=== PATIENT | female | born 1955 | race Caucasian/White ===

== ENCOUNTER → 2016-12-29 | Outpatient (CLI) | payer BC ==
[~2016-12-29] MED LIST: HYPERTENSION MED; ZOLM5TAB8
--- NOTE | 2016-12-29 17:46 | Diagnostic Imaging Report ---
INDICATION: Left foot pain. FINDINGS: Three views of the left foot show no fracture, dislocation or other acute abnormalities. IMPRESSION: Negative left foot. Dictated by: Dictated on workstation # [id number]
--- NOTE | 2016-12-29 17:55 | Diagnostic Imaging Report ---
INDICATION: Left ankle injury. FINDINGS: Three views of the left ankle show soft tissue swelling. There is no acute fracture or dislocation. IMPRESSION: Soft tissue swelling. No acute fracture seen. Dictated by: Dictated on workstation # [id number]
== END ==
LOC: RAD 15:22
PROVIDERS: ATTEND Family Medicine
DX: M25.572 Pain in left ankle and joints of left foot (principal); R22.42 Localized swelling, mass and lump, left lower limb
CPT/HCPCS: 73610; 73630

== ENCOUNTER → 2019-06-22 | Outpatient (CLI) | payer BC ==
--- NOTE | 2019-06-22 15:33 | Diagnostic Imaging Report ---
INDICATION: Back pain. COMPARISON: None FINDINGS: Frontal and lateral views of the lumbar spine were obtained. Static alignment shows mild levoscoliotic deformity epicentered at L3. AP static alignment is maintained. There is no fracture or destructive process. Multilevel degenerative disease is noted in the lumbar spine. Limited views of the abdomen demonstrate nonobstructive bowel gas pattern. There is moderate calcified aortic atherosclerosis. IMPRESSION: 1. No acute fracture or dislocation of the lumbar spine. Dictated by: Dictated on workstation # [id number]
--- NOTE | 2019-06-22 15:37 | Diagnostic Imaging Report ---
INDICATION: Mid to lower back pain. COMPARISON: None. EXAMINATION: Frontal and lateral radiographic views of the chest were obtained. FINDINGS: Upper thoracic spine is obscured on the lateral view secondary to overlying osseous and soft tissue structures. Evaluation of static alignment shows mild focal dextroscoliotic deformity centered at the T6 and T7 levels. AP static alignment is maintained. There is no significant anterolisthesis or retrolisthesis. There is no evidence of jumped facets. Vertebral body heights are maintained. There is no evidence of acute fracture. There are moderate multilevel degenerative changes consistent with intervertebral disc height loss with multilevel disc osteophyte complex formations. Surrounding included portions of the lungs are unremarkable. IMPRESSION: 1. No radiographic evidence of acute fracture or dislocation of the thoracic spine. 2. Moderate multilevel degenerative changes. Dictated by: Dictated on workstation # [id number]
== END ==
LOC: RAD 14:59
PROVIDERS: ATTEND Nurse Practitioner Family
DX: M47.814 Spondylosis without myelopathy or radiculopathy, thoracic region (principal); M54.5 Low back pain
CPT/HCPCS: 72072; 72100

== ENCOUNTER → 2019-07-12 | Outpatient (CLI) | payer BC ==
--- NOTE | 2019-07-12 14:02 | Diagnostic Imaging Report ---
INDICATION: Routine screening. Comparison is made with prior mammogram from 02/24/2015. 2-D and 3-D bilateral screening mammography was performed with CAD. Scattered fibroglandular densities are identified bilaterally. Benign nodule upper outer right breast posterior depth again noted and appears stable. There are benign calcifications. No spiculated mass or malignant-appearing microcalcifications are seen. Axillae are unremarkable. IMPRESSION: BI-RADS Category 2 No mammographic features suspicious for malignancy are identified. ACR BI-RADS Category 2: Benign findings. Result letter will be mailed to the patient. Note: At least 10% of breast cancer is not imaged by mammography. Dictated by: Dictated on workstation # [id number]
--- NOTE | 2019-07-12 15:22 | Diagnostic Imaging Report ---
PROCEDURE: MRI lumbar spine. TECHNIQUE: Multiplanar, multisequence MRI of the lumbar spine was performed without contrast. INDICATION: Chronic back pain. Comparison is made with prior MRI of the lumbar spine from 09/25/2007. There is normal curvature of the lumbar spine. There appears to be transitional lumbosacral vertebral body. Appears to be minimal anterolisthesis of L5 on S1. Vertebral body marrow signals normal. No compression fracture or geographic marrow lesion is seen. There is some mild disc desiccation noted. Conus is unremarkable at the L1 level. T12-L1: Central canal and neural foramina are widely patent. L1-L2: Central canal and neural foramina are widely patent. L2-L3: Central canal is patent. There is some mild left far lateral broad-based disc bulging resulting in mild left neural foraminal narrowing. L3-L4: There is some ligamentous thickening and facet changes. Central canal remains patent. Neural foramina are patent. L4-L5: Ligamentus thickening and facet changes with a broad-based disc/osteophyte complex is noted. Central canal remains patent. No significant neural foraminal narrowing is seen. L5-S1: Hypertrophic facet changes are noted. Central canal is patent. Neural foramina are patent. Paraspinous tissues are unremarkable. IMPRESSION: Lumbar spondylosis. No central canal stenosis is seen. There is some left neural foraminal narrowing at L2-L3 level. No other significant abnormality is seen. Dictated by: Dictated on workstation # [id number]
--- NOTE | 2019-07-12 15:25 | Diagnostic Imaging Report ---
INDICATION: Chronic back pain. COMPARISON: No prior studies are available for comparison. FINDINGS: Curvature and alignment of the thoracic spine is normal. Vertebral body heights are maintained. 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 There is also a probable hemangiolipoma within the T10 vertebral body. There is generalized thoracic spondylosis with variable disc space narrowing and desiccation. The thoracic spinal cord shows normal homogeneous signal intensity. A minimal disc/osteophyte complex indents the ventral thecal sac at the T5-T6 and T6-T7 levels, but no resultant central canal stenosis is seen. No neural foraminal stenosis is identified. Paraspinous tissues are unremarkable. IMPRESSION: Generalized thoracic spondylosis. There is no evidence of acute compression fracture, central canal or neural foraminal stenosis. Dictated by: Dictated on workstation # [id number]
== END ==
LOC: RAD 13:08
PROVIDERS: ATTEND Nurse Practitioner Family
DX: Z12.31 Encounter for screening mammogram for malignant neoplasm of breast (principal); M47.814 Spondylosis without myelopathy or radiculopathy, thoracic region; M47.816 Spondylosis without myelopathy or radiculopathy, lumbar region; M48.061 Spinal stenosis, lumbar region without neurogenic claudication
CPT/HCPCS: 72146; 72148; 77067

== ENCOUNTER → 2020-08-12 | Outpatient (CLI) | payer BC | LOC: LABNPT 07:35 | DX: Z53.9 Procedure and treatment not carried out, unspecified reason (principal) ==

== ENCOUNTER → 2020-08-14 | Outpatient (CLI) | payer BC | LOC: LABNPT 06:52 | PROVIDERS: ATTEND Orthopaedic Surgery | DX: Z01.812 Encounter for preprocedural laboratory examination (principal); Z20.822 Contact with and (suspected) exposure to COVID-19 | CPT/HCPCS: 87635 ==

== ENCOUNTER → 2021-01-13 | Outpatient (CLI) | payer BC | LOC: LABNPT 06:50 | PROVIDERS: ATTEND Orthopaedic Surgery | DX: Z01.812 Encounter for preprocedural laboratory examination (principal); Z20.822 Contact with and (suspected) exposure to COVID-19 | CPT/HCPCS: 87635 ==

== ENCOUNTER → 2021-03-16 | Outpatient (CLI) | payer BC ==
--- NOTE | 2021-03-16 13:43 | Diagnostic Imaging Report ---
INDICATION: THORACIC BACK PAIN, COUGH. COMPARISON: 04/14/2009. FINDINGS: Frontal and lateral views of the chest demonstrate normal heart size and pulmonary vascularity. The lungs are clear. There are no signs of infiltrate, pleural effusion, or pneumothorax. The visualized osseous structures show no acute abnormalities. IMPRESSION: No acute process. No signs of infiltrate, effusion, or pneumothorax. Dictated by: Dictated on workstation # [id number]
--- NOTE | 2021-03-16 14:09 | Diagnostic Imaging Report ---
INDICATION: Upper back pain. COMPARISON: MRI dated 07/12/2019 FINDINGS: Frontal and lateral radiograph views of the thoracic spine were obtained. There is mild dextroscoliotic deformity of the midthoracic spine. No underlying effusion anomalies or hemivertebrae are seen. AP static alignment is preserved. Thoracic vertebral body heights are maintained. There is no evidence of acute fracture. There are mild multilevel degenerative changes. Included portions of the lungs are clear. IMPRESSION: 1. Mild dextro scoliotic deformity of the midthoracic spine with mild multilevel degenerative changes. 2. No acute fracture or dislocation. Dictated by: Dictated on workstation # [id number]
== END ==
LOC: RAD 13:13
PROVIDERS: ATTEND Nurse Practitioner Family
DX: M47.814 Spondylosis without myelopathy or radiculopathy, thoracic region (principal); M41.84 Other forms of scoliosis, thoracic region; R05.9 Cough, unspecified
CPT/HCPCS: 71046; 72072

== ENCOUNTER → 2021-03-20 | Outpatient (CLI) | payer BC ==
--- NOTE | 2021-03-20 11:10 | Diagnostic Imaging Report ---
INDICATION: Routine screening. Comparison is made with prior mammogram 07/12/2019 and 02/24/2015. 2-D and 3-D bilateral screening mammography was performed with CAD. Scattered fibroglandular densities are identified bilaterally. The parenchymal pattern is stable. No dominant mass or malignant appearing microcalcifications are seen. Axillae are unremarkable. IMPRESSION: No mammographic features suspicious for malignancy are identified. BI-RADS Category 2 ACR BI-RADS Category 2: Benign findings. Result letter will be mailed to the patient. Note: At least 10% of breast cancer is not imaged by mammography. Dictated by: Dictated on workstation # [id number]
== END ==
LOC: RAD 08:15
PROVIDERS: ATTEND Family Medicine
DX: Z12.31 Encounter for screening mammogram for malignant neoplasm of breast (principal)
CPT/HCPCS: 77063; 77067

== ENCOUNTER 2021-12-09 12:06 | Outpatient (CLI) | payer MEDICARE, OTHER | END 2021-12-09 12:35 | LOC: SLEEP 12:06 | PROVIDERS: ATTEND Nurse Practitioner Family | DX: G47.10 Hypersomnia, unspecified (principal); I10 Essential (primary) hypertension | CPT/HCPCS: G0399 ==

== ENCOUNTER 2022-01-06 19:32 | Outpatient (CLI) | payer MEDICARE, OTHER | END 2022-01-07 06:35 | disposition home or self-care (01) | LOC: SLEEP 19:32 | PROVIDERS: ATTEND Family Medicine | DX: G47.33 Obstructive sleep apnea (adult) (pediatric) (principal); I10 Essential (primary) hypertension | CPT/HCPCS: 95811 ==

== ENCOUNTER → 2022-03-22 | Outpatient (CLI) | payer MEDICARE, OTHER ==
--- NOTE | 2022-03-23 11:45 | Diagnostic Imaging Report ---
Bilateral screening mammogram with CAD. This study was compared to the prior exams of 03/20/2021 and 07/12/2019. At this time there are no current complaints. The current study was also evaluated with a Computer Aided Detection (CAD) system. FINDINGS: There is a mild amount of fibroglandular tissue present in both breasts, similar to the prior exam. No primary or secondary sign of malignancy is noted. IMPRESSION: There is no radiographic evidence for malignancy. ACR BI-RADS Category 1: Negative. Result letter will be mailed to the patient. Note: At least 10% of breast cancer is not imaged by mammography. Dictated by: Dictated on workstation # [id number]
== END ==
LOC: RAD 11:30
PROVIDERS: ATTEND Family Medicine
DX: Z12.31 Encounter for screening mammogram for malignant neoplasm of breast (principal)
CPT/HCPCS: 77063; 77067

== ENCOUNTER → 2022-08-16 | Outpatient (CLI) | payer MEDICARE | LOC: CARD 08:30 | PROVIDERS: ATTEND Pediatrics | DX: R07.89 Other chest pain (principal) ==

== ENCOUNTER → 2022-09-22 | Outpatient (CLI) | payer MEDICARE ==
[2022-09-22 16:25] VITALS: BP 104/82
--- NOTE | 2022-09-22 16:25 | Cardiology Stress Test Report ---
Stress Test Report Date of Procedure/Referring: Date of Procedure: September 22, 2022 PCP Deangelo Rader DO Admitting Physician Admitting Physician: Attending Physician: Deangelo Rader DO Baseline Heart Rate: 100 Baseline Blood Pressure: Blood Pressure Systolic: 104 Blood Pressure Diastolic: 82 Baseline EKG: Baseline EKG: NSR Summary/Conclusion: Summary: In summary, the patient started exercising with a baseline heart rate, blood pressure and EKG mentioned above Patient was able to exercise for a total of 51 Seconds on Jonnie protocol, METs 2 Maximum heart rate 151 Maximum blood pressure 104/82 Stress EKG, Minimal nondiagnostic changes Recovery EKG , Return to baseline Conclusion: Poor exercise tolerance, patient was unable to walk beyond 51 seconds on standard Jonnie protocol, maximum heart rate was 151 which is 98% of maximal expected heart rate Nondiagnostic EKG changes with exercise return to baseline during recovery Due to her underlying condition I recommend evaluating Lexiscan Myoview stress test Copy Copies To 1: [facility] Copies To 2: DEANGELO RADER BASHAR J MD September 22, 2022 16:25
== END ==
LOC: CARD 09:15
PROVIDERS: ATTEND Pediatrics
DX: R07.89 Other chest pain (principal)
CPT/HCPCS: 93017